=== PATIENT | female | born 1995 | race Caucasian/White ===

== ENCOUNTER 2017-07-25 13:21 | Emergency (ER) | payer OTHER ==
[~2017-07-25] VITALS: Ht 165.1 cm; Wt 69.6 kg
[2017-07-25 13:30] VITALS: TEMP 37.1; Ht 165.1 cm; Wt 69.6 kg
[2017-07-25] MEDS ORDERED: METHYLPREDNISOLONE 125 MG VIAL IV STA (13:41)
[2017-07-25] MEDS ORDERED: SODIUM CHLORIDE 0.9% 1000ML 1,000 ML IV STA (13:41)
[2017-07-25] MEDS ORDERED: DiphenhydrAMINE HCL 50 MG/ML VIAL IV STA (13:41)
[2017-07-25] MEDS ORDERED: BCPILLS PO (13:54)
--- NOTE | 2017-07-25 14:03 | EMERGENCY ROOM VISIT NOTE ---
History Report prepared by Tigist: Alia Brown Under the Supervision of: Dr. Sienna Jean M.D. First contact with patient: 13:37 Chief Complaint: ALLERGIC REACTION Stated Complaint: ITCHING, HARDER TO BREATHE THAN NORMAL, BURNING, P History of Present Illness The patient is a 22 year old female who presents to the Emergency Room with complaints of persistent allergic reaction that started a few hours ago. The patient states that she went to [facility] for a UTI and a kidney infection. She notes that her UTI symptoms began six days ago but her flank pain began yesterday. The patient states that she went to [facility] this morning because her symptoms were worsening. They prescribed Cipro and the patient states she is experiencing an allergic reaction to the medications. The patient states that she developed hives on her face. She states that her hands and head have been itchy. She notes that she was having difficulty breathing earlier but it has improved. She reports that she is experiencing pain near her kidney. The patient states she has been feeling nauseous, chest pain, and her ears feel "swollen". She denies having a fever. Source of History: patient Onset: few hours ago Position: other (global) Quality: other (allergic reaction) Timing: other (persistent) Associated Symptoms: + chest pain, + nausea, No fevers Note: Associated Symptoms: ear swelling, hand and head itchiness, hives Review of Systems See HPI for pertinent positives & negatives. A total of 10 systems reviewed and were otherwise negative. Past Medical & Surgical Surgical Problems: (1) H/O wisdom tooth extraction Family History Patient reports no known family medical history. Social History Smoking Status: Never Smoker Smokeless Tobacco Use: No Alcohol Use: occasionally Marital Status: single Occupation Status: [employer] student Current/Historical Medications Scheduled Control Pills ( Control Pills), 1 TAB PO DAILY Cefdinir (Omnicef), 300 MG PO Q12H Allergies Coded Allergies: Ciprofloxacin (Unverified Allergy, Severe, HIVES, NAUSEA, FACE, EARS, AND SCALP ITCHING, 07/25/17) Physical Exam Vital Signs Date Time Temp Pulse Resp B/P (MAP) Pulse Ox O2 Delivery O2 Flow Rate FiO2 07/25/17 16:01 76 16 111/65 98 Room Air 07/25/17 14:30 75 25 134/62 100 Room Air 07/25/17 14:16 77 07/25/17 14:10 77 23 118/72 100 Room Air 07/25/17 14:10 100 Room Air 07/25/17 13:30 37.1 97 20 126/84 100 Room Air Physical Exam Vital signs reviewed. General: Well-appearing female, in no significant distress. HEENT: No scleral icterus, PERRLA, neck supple. Atraumatic. Cardiovascular: Regular rate and rhythm, no extra sounds. Pulmonary: Clear to auscultation bilaterally, normal work of breathing. Abdomen: Soft, nontender, nondistended, positive bowel sounds. Musculoskeletal: Atraumatic, no peripheral edema. Back: Positive left CVA tenderness. Atraumatic Neurologic: Patient awake alert and oriented x 3, full strength in all 4 extremities. Cranial nerves 2 through 12 grossly intact. Skin: Faint urticarial rash noted to the palms of hands, face, back and anterior chest, no perioral or periorbital edema. Warm, dry. Medical Decision & Procedures Laboratory Results 07/25/17 14:10 Red Blood Count 4.47, Mean Corpuscular Volume 87.0, Mean Corpuscular Hemoglobin 29.5, Mean Corpuscular Hemoglobin Concent 33.9, Mean Platelet Volume 9.4, Neutrophils (%) (Auto) 76.6, Lymphocytes (%) (Auto) 13.6, Monocytes (%) (Auto) 7.2, Eosinophils (%) (Auto) 2.2, Basophils (%) (Auto) 0.3, Neutrophils # (Auto) 7.55, Lymphocytes # (Auto) 1.34, Monocytes # (Auto) 0.71, Eosinophils # (Auto) 0.22, Basophils # (Auto) 0.03 07/25/17 14:10 Test 07/25/17 14:10 07/25/17 14:45 White Blood Count 9.86 K/uL (4.8-10.8) Red Blood Count 4.47 M/uL (4.2-5.4) Hemoglobin 13.2 g/dL (12.0-16.0) Hematocrit 38.9 % (37-47) Mean Corpuscular Volume 87.0 fL (80-100) Mean Corpuscular Hemoglobin 29.5 pg (25-34) Mean Corpuscular Hemoglobin Concent 33.9 g/dl (32-36) Platelet Count 212 K/uL (130-400) Mean Platelet Volume 9.4 fL (7.4-10.4) Neutrophils (%) (Auto) 76.6 % Lymphocytes (%) (Auto) 13.6 % Monocytes (%) (Auto) 7.2 % Eosinophils (%) (Auto) 2.2 % Basophils (%) (Auto) 0.3 % Neutrophils # (Auto) 7.55 K/uL (1.4-6.5) Lymphocytes # (Auto) 1.34 K/uL (1.2-3.4) Monocytes # (Auto) 0.71 K/uL (0.11-0.59) Eosinophils # (Auto) 0.22 K/uL (0-0.5) Basophils # (Auto) 0.03 K/uL (0-0.2) RDW Standard Deviation 39.8 fL (36.4-46.3) RDW Coefficient of Variation 12.4 % (11.5-14.5) Immature Granulocyte % (Auto) 0.1 % Immature Granulocyte # (Auto) 0.01 K/uL (0.00-0.02) Anion Gap 7.0 mmol/L (3-11) Est Creatinine Clear Calc Drug Dose 122.1 ml/min Estimated GFR () 139.7 Estimated GFR (Non- 120.6 BUN/Creatinine Ratio 12.9 (10-20) Calcium Level 8.9 mg/dl (8.5-10.1) Total Bilirubin 0.6 mg/dl (0.2-1) Direct Bilirubin 0.1 mg/dl (0-0.2) Aspartate Amino Transf (AST/SGOT) 13 U/L (15-37) Alanine Aminotransferase (ALT/SGPT) 14 U/L (12-78) Alkaline Phosphatase 58 U/L (45-117) Total Protein 7.4 gm/dl (6.4-8.2) Albumin 3.7 gm/dl (3.4-5.0) Urine Color YELLOW Urine Appearance CLEAR (CLEAR) Urine pH 7.0 (4.5-7.5) Urine Specific [place] 1.018 (1.000-1.030) Urine Protein TRACE (NEG) Urine Glucose (UA) NEG (NEG) Urine Ketones NEG (NEG) Urine Occult Blood 2+ (NEG) Urine Nitrite NEG (NEG) Urine Bilirubin NEG (NEG) Urine Urobilinogen NEG (NEG) Urine Leukocyte Esterase SMALL (NEG) Urine WBC (Auto) 10-30 /hpf (0-5) Urine RBC (Auto) 10-30 /hpf (0-4) Urine Hyaline Casts (Auto) 5-10 /lpf (0-5) Urine Epithelial Cells (Auto) 20-30 /lpf (0-5) Urine Bacteria (Auto) 1+ (NEG) Laboratory results per my review. Medications Administered Medications (Trade) Dose Ordered Sig/Jeovanny Route Start Time Stop Time Status Last Admin Dose Admin Diphenhydramine HCl (Benadryl Inj) 25 mg NOW STAT IV 07/25/17 13:41 07/25/17 13:45 DC 07/25/17 14:03 25 MG Methylprednisolone Sodium Succinate (Solu-Medrol IV) 125 mg NOW STAT IV 07/25/17 13:41 07/25/17 13:45 DC 07/25/17 14:03 125 MG Sodium Chloride 1,000 ml @ 999 mls/hr Q1H1M STAT IV 07/25/17 13:41 07/25/17 14:41 DC 07/25/17 14:03 999 MLS/HR Ketorolac Tromethamine (Toradol Inj) 30 mg NOW STAT IV 07/25/17 14:46 07/25/17 14:47 DC 07/25/17 14:57 30 MG ED Course 1338: Past medical records reviewed. The patient was evaluated in room C12B. A complete history and physical examination was performed. 1341: Ordered Sodium Chloride 1000 ml @ 999 mls/hr IV, Solu-Medrol IV 125 mg IV , Benadryl Inj 25 mg IV. 1442: I reevaluated the patient and she wanted to make sure that I knew that she was experiencing pain. Medical Decision Differential diagnosis: Etiologies such as allergic reaction, anaphylaxis, urticaria, Bro-Alan syndrome, toxic epidermal necrolysis, erythema multiforme, cellulitis, as well as others were entertained. This patient was evaluated and appeared to be in no significant distress. IV access was obtained and laboratory work was drawn. The patient was medicated with IV Benadryl and IV Solu-Medrol. She was hydrated with normal saline solution. Patient was given IV Toradol for pain. Laboratory work reveals a normal white blood cell count. Patient's urinalysis is concerning for infection however is grossly contaminated. The patient is currently menstruating. Given the degree of pain and the confusing urinalysis, CT scan of the abdomen and pelvis was ordered to rule out renal calculi. This study is negative. The patient will be discharged to follow-up with her PCP this week. She was advised to list Cipro as an allergy in the future. She'll be placed on Omnicef 300 mg twice a day for 10 days. She will return to the ER for worsening of symptoms or any medical concerns. Medication Reconcilliation Current Medication List: was personally reviewed by me Impression Primary Impression: Allergic reaction Additional Impression: Pyelonephritis Scribe Attestation The scribe's documentation has been prepared under my direction and personally reviewed by me in its entirety. I confirm that the note above accurately reflects all work, treatment, procedures, and medical decision making performed by me. Departure Information Prescriptions Cefdinir (Omnicef) 300 Mg Cap 300 MG PO Q12H for 10 Days, #20 CAP Prov: Sienna Jean M.D. 07/25/17 Referrals No Doctor, Assigned (PCP) Patient Instructions [facility] Problem Qualifiers Primary Impression: Allergic reaction Encounter type: initial encounter Qualified Codes: T78.40XA - Allergy, unspecified, initial encounter
[2017-07-25 14:30] LABS: BASO % 0.3 %; BASO ABS # 0.03 K/uL (0-0.2); COMPLETE YES; EOS % 2.2 %; HEMATOCRIT 38.9 % (37-47); IG% 0.1 %; LYMPH % 13.6 %; LYMPH ABS # 1.34 K/uL (1.2-3.4); MEAN CORPUSCULAR HEMOGLOBIN 29.5 pg (25-34); MEAN CORPUSCULAR HGB CONC 33.9 g/dl (32-36); MEAN PLATELET VOLUME 9.4 fL (7.4-10.4); MONO % 7.2 %; NEUT % 76.6 %; PLATELET COUNT 212 K/uL (130-400); RED BLOOD COUNT 4.47 M/uL (4.2-5.4); WHITE BLOOD COUNT 9.86 K/uL (4.8-10.8)
[2017-07-25] MEDS ORDERED: CEFD1CAP14 PO (14:42)
[2017-07-25] MEDS ORDERED: KETOROLAC TROMETHAMINE 30 MG/ML VIAL IV STA (14:46)
[2017-07-25 14:49] LABS: BUN/CREATININE RATIO 12.9 (10-20); CALCIUM 8.9 mg/dl (8.5-10.1); CREATININE 0.72 mg/dl (0.60-1.20); POTASSIUM 3.4 mmol/L (3.5-5.1)
[2017-07-25 15:04] LABS: URINE APPEARANCE CLEAR (CLEAR); URINE BILIRUBIN NEG (NEG); URINE COLOR YELLOW; URINE EPITHELIAL CELL AUTO 20-30 /lpf (0-5); URINE NITRITE NEG (NEG); URINE SPECIFIC GRAVITY 1.018 (1.000-1.030); UROBILINOGEN NEG (NEG); ZZUR CULT IF INDIC CLEAN CATCH YES
[2017-07-25 15:06] LABS: MANUAL MICROSCOPIC REQUIRED? NO; REVIEW REQ? YES
--- NOTE | 2017-07-25 15:46 | DIAGNOSTIC IMAGING REPORT ---
CT SCAN OF THE ABDOMEN AND PELVIS WITHOUT IV CONTRAST CLINICAL HISTORY: Left flank pain. COMPARISON STUDY: No priors. TECHNIQUE: CT scan of the abdomen and pelvis is performed from the lung bases to the proximal femora. Images are reviewed in the axial, sagittal, and coronal planes. IV contrast was not administered for this examination as per the front clinician. A dose lowering technique was utilized adhering to the principles of ALARA. CT DOSE: 345.65 mGy.cm FINDINGS: Lung bases: The heart is normal in size and there is trace pericardial fluid. Trace pleural effusions are identified. A 3 mm pleural-based nodule is seen in the right middle lobe on image #14. This is of doubtful significance in this age group. The lung bases are otherwise clear. Liver: The unenhanced liver is normal in size, contour, and attenuation. There is no intrahepatic biliary ductal dilatation. Gallbladder: Contracted. Spleen: Normal in size and attenuation. Pancreas: Unremarkable. Adrenal glands: Unremarkable. Kidneys: The unenhanced kidneys are normal in size and without hydronephrosis. There are no renal calculi identified. There is no evidence of contour deforming renal mass lesion. Abdominal vasculature: The abdominal aorta is normal in course and caliber. Bowel: The small bowel and colon are normal in course and caliber. The appendix is well-visualized and normal. Peritoneum: There is no intraperitoneal free air or abdominal ascites. There is a small fat-containing umbilical hernia. Lymphadenopathy: None. Pelvic viscera: The bladder, uterus, and adnexa are normal as imaged. Ovarian follicles are incidentally noted. Skeletal structures: No lytic or blastic lesions are seen. IMPRESSION: 1. There are no acute infectious or inflammatory findings in the abdomen or pelvis. 2. No renal calculi are seen. 3. Trace pleural effusions are identified. Electronically signed by: Nima Horner M.D. 07/25/2017 3:44 PM Dictated Date/Time: 07/25/2017 3:39 PM
[2017-07-25 16:01] VITALS: BP 111/65; PULSE 76; O2SAT 98
== END 2017-07-25 16:03 | disposition home or self-care (01) ==
LOC: C.EDB 13:24 → C.EDC 16:03
DX: L27.0 Generalized skin eruption due to drugs and medicaments taken internally (principal); T36.8X5A Adverse effect of other systemic antibiotics, initial encounter; X58.XXXA Exposure to other specified factors, initial encounter; Z79.3 Long term (current) use of hormonal contraceptives